=== PATIENT | male | born 1940 | race African-American/Black ===

== ENCOUNTER 2018-01-17 17:07 | Inpatient (IN) | payer OTHER ==
[~2018-01-17] VITALS: Ht 175.3 cm; Wt 97.1 kg
[2018-01-17 17:24] LABS: URINE BLOOD 2+ (Negative); URINE GLUCOSE-RANDOM* NEGATIVE (Negative); URINE KETONES TRACE (Negative); URINE LEUKOCYTES-REFLEX 2+ (Negative); URINE NITRITE-REFLEX POSITIVE (Negative); URINE PROTEIN (DIPSTICK) 3+ (Negative); URINE SPECIFIC GRAVITY >= 1.030 (1.005-1.035)
[2018-01-17 17:25] LABS: URINE CLARITY CLOUDY; URINE COLOR YELLOW
[2018-01-17 17:26] VITALS: BP 126/73
[2018-01-17 17:26] LABS: ICTOTEST (BILI CONFIRMATORY) Negative (Negative); URINE BILIRUBIN NEGATIVE (Negative)
[2018-01-17 17:28] LABS: BACTERIA-REFLEX >30 Many /HPF (None Seen); CASTS None Seen /LPF (None Seen); CRYSTALS None Seen /LPF (None Seen); SQUAMOUS None Seen /LPF (0-3); URINE RBC 3-10 Few /HPF (0-2); URINE WBC-REFLEX >25 Many /HPF (0-5)
[2018-01-17] MEDS ORDERED: VASOTEC10 MG PO (17:33)
[2018-01-17] MEDS ORDERED: GLUCOPHAGE XR500 MG PO (17:33)
[2018-01-17] MEDS ORDERED: LIPITOR40 MG PO (17:34)
[2018-01-17] MEDS ORDERED: PLAVIX 75 MG TA75 M1 PO (17:35)
[2018-01-17] MEDS ORDERED: METHYLDOPA HCT PO (17:35)
[2018-01-17] MEDS ORDERED: FLOMAX0.4 MG PO (17:36)
[2018-01-17 17:54] LABS: HEMATOCRIT 39.1 % (42.0-52.0); HEMOGLOBIN 13.6 gm/dL (14.0-18.0); MCH 33.5 pg (26.0-34.0); MCHC 34.8 g/dL (28.0-37.0); MCV 96.1 fL (80.0-100.0); PLATELET COUNT 155 thou/uL (150-400); RBC 4.07 mil/uL (4.50-6.00); RDW 13.6 % (10.5-14.5); WBC 19.5 thou/uL (4.0-11.0)
[2018-01-17 18:11] LABS: CALCIUM 8.7 mg/dL (8.5-10.1); CREATININE 1.4 mg/dL (0.7-1.3); POTASSIUM 3.4 mmol/L (3.5-5.1)
[2018-01-17 18:17] LABS: ALBUMIN 2.6 g/dL (3.4-5.0); TOTAL BILIRUBIN 1.9 mg/dL (<0.1-1.0); TOTAL PROTEIN 6.9 g/dL (6.4-8.2)
[2018-01-17 18:25] LABS: ANISOCYTOSIS 1+
[2018-01-17 20:34] VITALS: BP 112/62
[2018-01-17 21:11] VITALS: BP 117/72
[2018-01-18 03:06] VITALS: BP 105/62
[2018-01-18 04:30] LABS: HEMATOCRIT 37.6 % (42.0-52.0); HEMOGLOBIN 13.1 gm/dL (14.0-18.0); MCH 33.7 pg (26.0-34.0); MCHC 34.9 g/dL (28.0-37.0); MCV 96.7 fL (80.0-100.0); RBC 3.88 mil/uL (4.50-6.00); RDW 13.6 % (10.5-14.5); WBC 14.7 thou/uL (4.0-11.0)
[2018-01-18 04:45] LABS: CALCIUM 8.2 mg/dL (8.5-10.1); CREATININE 1.3 mg/dL (0.7-1.3); POTASSIUM 3.7 mmol/L (3.5-5.1)
[2018-01-18 08:03] VITALS: BP 113/71
[2018-01-18 16:12] VITALS: BP 118/65
[2018-01-18 20:46] VITALS: BP 116/68
[2018-01-18 20:52] VITALS: BP 116/68
[2018-01-19 07:12] LABS: HEMATOCRIT 36.5 % (42.0-52.0); HEMOGLOBIN 12.6 gm/dL (14.0-18.0); MCH 33.3 pg (26.0-34.0); MCHC 34.4 g/dL (28.0-37.0); MCV 96.8 fL (80.0-100.0); RBC 3.77 mil/uL (4.50-6.00); RDW 13.6 % (10.5-14.5); WBC 9.1 thou/uL (4.0-11.0)
[2018-01-19 07:23] LABS: CALCIUM 8.5 mg/dL (8.5-10.1); CREATININE 1.2 mg/dL (0.7-1.3); POTASSIUM 3.6 mmol/L (3.5-5.1)
[2018-01-19 08:15] VITALS: BP 143/69
[2018-01-20 08:40] VITALS: BP 150/74
[2018-01-20] MEDS ORDERED: KEFLEX500 M1 PO (15:11)
[2018-01-20 15:44] VITALS: BP 150/74
== END 2018-01-20 16:49 | disposition home or self-care (01) | DRG 871 ==
LOC: ER 17:07 → EROBS 19:06 → SICU 19:06 → 4W 21:07 → SICU 01-18 17:37 → ENTRNSPT 01-20 16:24 → SICU 01-20 16:49
PROVIDERS: Hospitalist; Nurse Practitioner Family; Physician Assistant
DX: A41.9 Sepsis, unspecified organism (principal); E43 Unspecified severe protein-calorie malnutrition; N39.0 Urinary tract infection, site not specified; N17.9 Acute kidney failure, unspecified; I10 Essential (primary) hypertension; E11.9 Type 2 diabetes mellitus without complications; E78.5 Hyperlipidemia, unspecified; F17.210 Nicotine dependence, cigarettes, uncomplicated; N40.0 Benign prostatic hyperplasia without lower urinary tract symptoms; Z68.31 Body mass index [BMI] 31.0-31.9, adult; Z86.73 Personal history of transient ischemic attack (TIA), and cerebral infarction without residual deficits; Z79.02 Long term (current) use of antithrombotics/antiplatelets; Z79.84 Long term (current) use of oral hypoglycemic drugs; Z79.899 Other long term (current) drug therapy
CPT/HCPCS: 10047; 15002